=== PATIENT | female | born 1990 | race Caucasian/White ===

== ENCOUNTER → 2019-11-23 09:40 | Outpatient (BNVA) | payer SELFPAY | PROVIDERS: Visit Provider Family Medicine | DX: Z13.6 Encounter for screening for cardiovascular disorders (principal); G47.00 Insomnia, unspecified | CPT/HCPCS: 80053; 85025 ==

== ENCOUNTER 2023-09-21 19:23 | Outpatient (CLI) | payer SELFPAY ==
[2023-09-21 19:15] VITALS: BMI 33.4
[2023-09-21 19:52] VITALS: BP 119/76; PULSE 99; TEMP 36.2
[2023-09-21 20:07] VITALS: BP 115/73; PULSE 90
[2023-09-21 20:19] LABS: HCG, Serum Qual Negative (Negative)
[2023-09-21 20:38] VITALS: BP 121/65; PULSE 86
== END 2023-09-21 20:10 | disposition home or self-care (01) ==
LOC: OPOB 19:26 → OBGYN 19:29
PROVIDERS: Visit Provider Family Medicine
DX: O26.899 Other specified pregnancy related conditions, unspecified trimester (principal); Z3A.00 Weeks of gestation of pregnancy not specified; R10.9 Unspecified abdominal pain
CPT/HCPCS: 36415; 84702; 84703; 99211

== ENCOUNTER → 2024-03-13 12:08 | Outpatient (BNVA) | payer BC, SELFPAY | PROVIDERS: Visit Provider Psychiatry & Neurology Psychiatry | DX: R53.83 Other fatigue (principal) | CPT/HCPCS: 80053; 84443; 85025 ==